=== PATIENT | female | born 1960 ===

== ENCOUNTER → 2022-04-14 | Outpatient (CLI) | payer MEDICARE ==
[2022-04-14 12:21] LABS: BASOPHILS ABSOLUTE AUTO 0.08 K/mm3 (0.00-0.23); BASOPHILS PERCENT AUTO 1 % (0-2); EOSINOPHILS ABSOLUTE AUTO 0.34 K/mm3 (0.00-0.68); EOSINOPHILS PERCENT AUTO 4 % (0-6); Hematocrit 37.8 % (33.0-51.0); Hemoglobin 12.3 g/dL (11.5-16.0); IMMATURE GRAN ABSOLUTE AUTO 0.04 K/mm3 (0.00-0.10); IMMATURE GRAN PERCENT AUTO 1 % (0-1); LYMPHOCYTES ABSOLUTE AUTO 2.72 K/mm3 (0.84-5.20); LYMPHOCYTES PERCENT AUTO 31 % (21-46); MONOCYTES PERCENT AUTO 7 % (4-13); Mean Corpuscular HGB 28.7 pg (26.0-34.0); Mean Corpuscular HGB Conc 32.5 g/dL (31.5-36.5); Mean Corpuscular Volume 88 fL (80-100); Mean Platelet Volume 10.5 fL (9.1-12.4); NEUTROPHILS ABSOLUTE AUTO 4.99 K/mm3 (1.96-9.15); NEUTROPHILS PERCENT AUTO 57 % (41-73); Platelet Count 258 K/mm3 (150-400); RDW Coefficient Variation 13.2 % (11.7-14.2); RDW Standard Deviation 42.2 fL (35.1-46.3); Red Blood Cell Count 4.28 M/mm3 (3.80-5.20); White Blood Cell Count 8.77 K/mm3 (4.00-11.30)
[2022-04-14 12:39] LABS: Albumin, Blood 3.8 g/dL (3.4-5.0); Bilirubin, Total 0.2 mg/dL (0.1-1.0); Bun/Creatinine Ratio 18.1 (12.0-20.0); Creatinine, Blood 1.05 mg/dL (0.40-1.00); Globulin, Blood 3.7 g/dL (2.2-4.0); Potassium, Blood 4.8 mmol/L (3.5-5.5); Total Protein, Blood 7.5 g/dL (6.4-8.2)
== END ==
LOC: LAB SHORT 12:16 → LAB 12:16
PROVIDERS: Physician Assistant Medical
DX: G40.909 Epilepsy, unspecified, not intractable, without status epilepticus (principal)
CPT/HCPCS: 80053; 80177; 85025

== ENCOUNTER 2023-10-02 00:13 | Emergency (ER) | payer OTHER ==
[~2023-10-02] VITALS: Ht 154.9 cm; Wt 73.0 kg
[~2023-10-02 00:13] MED LIST: ALBU2.5V5 INH; AMLO10 PO; ASPI81CH PO; ATOR20 PO; Colace100 MG PO; KEPPRA250 M2 PO; LAMO25 PO; METF500 PO; Norco 10-325 T1 EACH PO; Prinivil10 MG PO; Prozac40 MG PO; QVAR REDIHALE10.6 G2 IH; SENN187 PO
[2023-10-02 00:33] LABS: BASOPHILS ABSOLUTE AUTO 0.05 K/mm3 (0.00-0.23); BASOPHILS PERCENT AUTO 0 % (0-2); EOSINOPHILS ABSOLUTE AUTO 0.01 K/mm3 (0.00-0.68); EOSINOPHILS PERCENT AUTO 0 % (0-6); Hemoglobin 11.6 g/dL (11.5-16.0); IMMATURE GRAN ABSOLUTE AUTO 0.12 K/mm3 (0.00-0.10); IMMATURE GRAN PERCENT AUTO 1 % (0-1); LYMPHOCYTES ABSOLUTE AUTO 1.97 K/mm3 (0.84-5.20); LYMPHOCYTES PERCENT AUTO 16 % (21-46); MONOCYTES ABSOLUTE AUTO 0.53 K/mm3 (0.16-1.47); MONOCYTES PERCENT AUTO 4 % (4-13); Mean Corpuscular HGB 27.6 pg (26.0-34.0); Mean Corpuscular HGB Conc 32.2 g/dL (31.5-36.5); Mean Corpuscular Volume 86 fL (80-100); Mean Platelet Volume 10.4 fL (9.1-12.4); NEUTROPHILS ABSOLUTE AUTO 9.44 K/mm3 (1.96-9.15); NEUTROPHILS PERCENT AUTO 78 % (41-73); Platelet Count 284 K/mm3 (150-400); RDW Coefficient Variation 13.6 % (11.7-14.2); RDW Standard Deviation 42.7 fL (35.1-46.3); White Blood Cell Count 12.12 K/mm3 (4.00-11.30)
[2023-10-02 00:54] LABS: Albumin, Blood 3.4 g/dL (3.4-5.0); Albumin/Globulin Ratio 0.9 (0.8-1.8); Bilirubin, Total 0.1 mg/dL (0.1-1.0); Bun/Creatinine Ratio 21.5 (12.0-20.0); Calcium, Blood 8.7 mg/dL (8.5-10.1); Creatinine, Blood 0.98 mg/dL (0.40-1.00); Globulin, Blood 3.7 g/dL (2.2-4.0); Potassium, Blood 4.9 mmol/L (3.5-5.5); Total Protein, Blood 7.1 g/dL (6.4-8.2)
[2023-10-02 01:04] LABS: Magnesium, Blood 1.6 mg/dL (1.6-2.4)
[2023-10-02 01:26] LABS: Thyroid Stimulating Hormone 1.15 uIU/mL (0.360-4.800)
[2023-10-02] MEDS ORDERED: LamoTRIgine 25 MG Tab PO ONE (03:55)
[2023-10-02 04:00] VITALS: BP 128/61
[2023-10-03 15:38] LABS: KEPPRA (LEVETIRACETAM) 63 ug/mL (10-40)
== END 2023-10-02 00:41 | disposition home or self-care (01) ==
LOC: ER 00:13
PROVIDERS: Student in an Organized Health Care Education/Training Program
DX: R56.9 Unspecified convulsions (principal); Z79.899 Other long term (current) drug therapy; Z79.82 Long term (current) use of aspirin; Z79.84 Long term (current) use of oral hypoglycemic drugs
CPT/HCPCS: 36415; 70450; 80053; 80177; 83735; 84443; 85025; 99285-25; A9270

== ENCOUNTER 2024-04-06 15:52 | Emergency (ER) | payer OTHER ==
[~2024-04-06] VITALS: Ht 154.9 cm; Wt 82.5 kg
[2024-04-06 16:34] LABS: BASOPHILS ABSOLUTE AUTO 0.11 K/mm3 (0.00-0.23); BASOPHILS PERCENT AUTO 1 % (0-2); EOSINOPHILS ABSOLUTE AUTO 0.46 K/mm3 (0.00-0.68); EOSINOPHILS PERCENT AUTO 3 % (0-6); Hematocrit 35.3 % (33.0-51.0); Hemoglobin 10.9 g/dL (11.5-16.0); Mean Corpuscular HGB 23.3 pg (26.0-34.0); Mean Corpuscular HGB Conc 30.9 g/dL (31.5-36.5); Mean Corpuscular Volume 76 fL (80-100); Mean Platelet Volume 10.4 fL (9.1-12.4); Platelet Count 303 K/mm3 (150-400); RDW Coefficient Variation 17.2 % (11.7-14.2); RDW Standard Deviation 46.8 fL (35.1-46.3); Red Blood Cell Count 4.67 M/mm3 (3.80-5.20); White Blood Cell Count 14.18 K/mm3 (4.00-11.30)
[2024-04-06 16:39] LABS: IMMATURE GRAN ABSOLUTE AUTO 0.07 K/mm3 (0.00-0.10); IMMATURE GRAN PERCENT AUTO 1 % (0-1); LYMPHOCYTES ABSOLUTE AUTO 5.41 K/mm3 (0.84-5.20); LYMPHOCYTES PERCENT AUTO 38 % (21-46); MONOCYTES ABSOLUTE AUTO 0.95 K/mm3 (0.16-1.47); MONOCYTES PERCENT AUTO 7 % (4-13); NEUTROPHILS ABSOLUTE AUTO 7.18 K/mm3 (1.96-9.15); NEUTROPHILS PERCENT AUTO 51 % (41-73)
[2024-04-06 16:48] LABS: Albumin, Blood 3.6 g/dL (3.4-5.0); Albumin/Globulin Ratio 0.9 (0.8-1.8); Bilirubin, Total 0.4 mg/dL (0.1-1.0); Bun/Creatinine Ratio 22.8 (12.0-20.0); Calcium, Blood 9.2 mg/dL (8.5-10.1); Creatinine, Blood 1.14 mg/dL (0.40-1.00); Globulin, Blood 3.9 g/dL (2.2-4.0); Potassium, Blood 4.3 mmol/L (3.5-5.5); Total Protein, Blood 7.5 g/dL (6.4-8.2)
[2024-04-06 16:52] LABS: BASOPHILS PERCENT MAN 0 % (0-2); EOSINOPHILS ABSOLUTE MAN 0.14 K/mm3 (0.00-0.68); EOSINOPHILS PERCENT MAN 1 % (0-6); LYMPHOCYTES % ATYPICAL MANUAL 2 % (0-0); LYMPHOCYTES ABSOLUTE MAN 7.23 K/mm3 (0.84-5.20); LYMPHOCYTES PERCENT MAN 49 % (21-46); MONOCYTES ABSOLUTE MAN 0.85 K/mm3 (0.16-1.47); MONOCYTES PERCENT MAN 6 % (4-13); NEUTROPHILS ABSOLUTE MAN 5.95 K/mm3 (1.96-9.15); SEG NEUTROPHILS PERCENT MAN 42 % (41-73); TOTAL CELLS COUNTED 100
[2024-04-06] MEDS ORDERED: Metoclopramide HCl 5MG / ML 2ML Vial IV ONE (17:45)
[2024-04-06] MEDS ORDERED: Acetaminophen 500 MG Tab PO ONE (17:45)
[2024-04-06 18:41] VITALS: BP 136/71
[2024-04-06 18:54] LABS: Source, Urine Clean Catch
[2024-04-06 19:02] LABS: Appearance, Urine Hazy (Clear); Bilirubin, Urine Neg (Neg); Blood, Urine Neg (Neg); Color, Urine Yellow (P-Yellow); Glucose Qualitative, Urine Neg (Neg); Ketones, Urine Neg (Neg); Leukocyte Esterase, Urine 2+ (Neg); Nitrite, Urine Neg (Neg); Protein, Urine Neg (Neg); Specific Gravity, Urine 1.015 (1.003-1.022); Urobilinogen, Urine NORM (Normal)
[2024-04-06 19:21] LABS: Red Blood Cells, Urine 0-2 /hpf (0-2); Squamous Epithelial Cells Mod /hpf (Few)
[2024-04-06 19:22] LABS: Bacteria Mod /hpf; Transitional Epithelial Cells Few /hpf (0-Rare)
== END 2024-04-06 20:00 | disposition home or self-care (01) ==
LOC: ER 15:52
PROVIDERS: Emergency Medicine; Physician Assistant
DX: R51.9 Headache, unspecified (principal); R30.0 Dysuria; E11.9 Type 2 diabetes mellitus without complications; I10 Essential (primary) hypertension; Z86.69 Personal history of other diseases of the nervous system and sense organs; Z79.84 Long term (current) use of oral hypoglycemic drugs; Z79.82 Long term (current) use of aspirin; Z79.899 Other long term (current) drug therapy; Z88.5 Allergy status to narcotic agent; Z88.8 Allergy status to other drugs, medicaments and biological substances
CPT/HCPCS: 70450; 80053; 81001; 85025; 87086; 96374; 99284-25; A9270; J2765

== ENCOUNTER 2024-12-19 11:23 | Day surgery (SDC) | payer OTHER ==
[~2024-12-19] VITALS: Ht 149.9 cm; Wt 85.0 kg
[2024-12-19] VITALS (10 sets, daily range): BP systolic 101–132; BP diastolic 53–65
[~2024-12-19 11:23] MED LIST changes: +Lactated Ringer's 1,000 ML IV SCH
[2024-12-19] MEDS ORDERED: SPIRIVA RESPIMAT4 G2 INH (12:16)
[2024-12-19] MEDS ORDERED: Lidocaine HCl 2% 20 ML MDV ONE (12:26)
[2024-12-19] MEDS ORDERED: propofoL 60 ML IV ONE (12:26)
[2024-12-19] MEDS ORDERED: Midazolam HCl 1MG / ML 2ML Vial ONE (12:27)
[2024-12-19] MEDS ORDERED: EpiNEPhrine 1 MG/1 ML 1ML Vial ONE (12:32)
[2024-12-19] MEDS ORDERED: Lidocaine 2% Jelly Uro-Jet ONE (12:32)
[2024-12-19] MEDS ORDERED: Lidocaine 2% 5 ML SDV ONE (12:32)
[2024-12-19] MEDS ORDERED: Ipratropium/Albuterol SulF 2.5-0.5MG/3 ML Amp INH ONE (12:35)
[2024-12-19] MEDS ORDERED: Lidocaine HCl 4% 5 ML SDA INH ONE (12:35)
[2024-12-19] MEDS ORDERED: FentaNYL Citrate 50 MCG/ML 2 ML Injection ONE (12:39)
[2024-12-19] MEDS ORDERED: Dexmedetomidine HCL 200 MCG / 2 ML ONE (12:40)
--- NOTE | 2024-12-19 13:09 | NUR ---
12/19/[address] IN OR 2; SEE ANESTHESIA RECORDS.
--- NOTE | 2024-12-19 13:26 | NUR ---
History, Chart, Medications and Allergies reviewed before start of procedure. Pre-Op teaching done. Pt verbalizes understanding. Patient confirms NPO status and agrees with scheduled surgery. Patient States Post-Procedure ride home has been arranged.
[2024-12-19] MEDS ORDERED: HYDROCODONE-AC1 EAC7 PO (13:27)
[2024-12-19] MEDS ORDERED: FERROUS SULFAT325 M3 PO (13:29)
[2024-12-19] MEDS ORDERED: PANTOPRAZOLE SO40 M2 PO (13:29)
[2024-12-19] MEDS ORDERED: NYSTRIT TOP (13:30)
[2024-12-19] MEDS ORDERED: ANORO ELLIPTA1 EACH INH (13:32)
[2024-12-19] MEDS ORDERED: PREGABALIN75 MG PO (13:33)
[2024-12-19] MEDS ORDERED: Phenylephrine HCl 100 MCG/ML-NS 10MLSYR (1MG/10ML) ONE (13:37)
[2024-12-19] MEDS ORDERED: Ondansetron HCl 2 MG / ML 2ML Vial ONE (13:37)
--- NOTE | 2024-12-19 14:03 | NUR ---
PT S/P BRONCH W/ MAC IN OR. SOME COUGHING. C/O FEELING "LOW" IN TERMS OF HER CBG. FEELING "KIND OF DIZZY", CBG CHECKED = 118
--- NOTE | 2024-12-19 16:48 | NUR ---
Discharge instructions reviewed with patient. Patient verbalizes understanding. Copy given to patient to take home. Patient tolerating PO intake. Discharged via wheelchair to private car for ride home.
== END 2024-12-19 15:50 | disposition home or self-care (01) ==
LOC: ORSCMMR 11:23 → ORD 13:00 → ORSCMMR 13:00
PROVIDERS: Student in an Organized Health Care Education/Training Program
PROC: 0B9H8ZX Drainage of Lung Lingula, Via Natural or Artificial Opening Endoscopic, Diagnostic (ICD-10-PCS; principal; 2024-12-19 13:00)
PROC: 0B9D8ZX Drainage of Right Middle Lung Lobe, Via Natural or Artificial Opening Endoscopic, Diagnostic (ICD-10-PCS; principal; 2024-12-19 13:00)
PROC: 0B9C8ZX Drainage of Right Upper Lung Lobe, Via Natural or Artificial Opening Endoscopic, Diagnostic (ICD-10-PCS; principal; 2024-12-19 13:00)
PROC: 0BBH8ZX Excision of Lung Lingula, Via Natural or Artificial Opening Endoscopic, Diagnostic (ICD-10-PCS; principal; 2024-12-19 13:00)
DX: J84.9 Interstitial pulmonary disease, unspecified (principal); I10 Essential (primary) hypertension; E78.5 Hyperlipidemia, unspecified; I25.10 Atherosclerotic heart disease of native coronary artery without angina pectoris; Z87.891 Personal history of nicotine dependence; G47.33 Obstructive sleep apnea (adult) (pediatric); E11.40 Type 2 diabetes mellitus with diabetic neuropathy, unspecified; Z79.84 Long term (current) use of oral hypoglycemic drugs; K21.9 Gastro-esophageal reflux disease without esophagitis; Z79.899 Other long term (current) drug therapy; E66.9 Obesity, unspecified; Z68.38 Body mass index [BMI] 38.0-38.9, adult
CPT/HCPCS: 71045; 82947; 88108; 88305; J0171; J2003; J2250; J2371; J2405; J2704; J3010; J7120